=== PATIENT | male | born 1990 | race Caucasian/White ===

== ENCOUNTER 2020-03-06 00:55 | Outpatient (CLI) | payer OTHER, SELFPAY ==
[2020-03-06 16:32] LABS: SARS-CoV-2 RNA PCR Negative
== END 2020-03-06 00:56 | disposition home or self-care (01) ==
LOC: ANHCOVIDDT 00:55
PROVIDERS: Visit Provider Internal Medicine Gastroenterology
DX: Z01.812 Encounter for preprocedural laboratory examination (principal); Z20.828 Contact with and (suspected) exposure to other viral communicable diseases
CPT/HCPCS: 87635; C9803; U0003

== ENCOUNTER 2020-03-08 00:25 | Day surgery (SDC) | payer OTHER, SELFPAY ==
[2020-02-23 14:30] VITALS: BMI 28.3
[2020-03-08 06:31] VITALS: BP 129/80; PULSE 83; RESP 20; TEMP 36.6; O2SAT 100; BMI 28.1
[2020-03-08] MEDS: LACTATED RINGERS 1,000 ML 150 ML IV CONT (06:42)
--- NOTE | 2020-03-08 07:14 | P.PNAN_ITS ---
Anes - Initial Pre Proc Eval Procedure: Operation Date: 03/08/20 07:30 Proposed Procedures p Colonoscopy - Wilfrido Erazo MD Date/Time: 03/08/20 07:14 Surgeon: Wilfrido Erazo MD Pre Op Diagnosis: rectal bleeding, change in bowel habits Patient Data Age: 29 Gender: M Height: 6 ft 2 in Weight: 99.5 kg Last Vital Signs Temp 36.6 C 03/08/20 06:31 Pulse 83 03/08/20 06:31 Resp 20 03/08/20 06:31 BP 129/80 03/08/20 06:31 Pulse Ox 100 03/08/20 06:31 Allergies Allergy/AdvReac Type Severity Reaction Status Date / Time ibuprofen Allergy Severe Swelling Verified 03/08/20 06:29 tree nut Allergy Mild Hives Verified 03/08/20 06:29 azithromycin Allergy Unknown N/V Verified 03/08/20 06:29 levofloxacin Allergy Unknown HIVES, N/V Verified 03/08/20 06:29 Penicillins Allergy Unknown HIVES Verified 03/08/20 06:29 sulfamethoxazole Allergy Unknown N/V Verified 03/08/20 06:29 trimethoprim Allergy Unknown N/V Verified 03/08/20 06:29 Home Medications Medication Instructions Recorded Confirmed Type alprazolam 0.25 mg PO PRN PRN 02/23/20 02/23/20 History budesonide-formoterol [Symbicort] 2 puff INHALATION DAILY 02/23/20 03/08/20 History Patient hx anesthesia problems: none Family hx anesthesia problems: none [facility] Past Medical History Medical History Asthma Anes - Eval Final PreProcedure Day of Procedure 03/08/20 07:14 Patient weight: overweight Heart: regular rate and rhythm Lungs: clear to auscultation Airway: Mallampati scale class 1 Neurological: alert and oriented Last oral intake: >/= 8 hours ASA classification: II Emergent: no Anesthetic plan: proceed Anesthesia type and monitoring: general GIVS and standard monitoring Informed Consent: The patient's anesthetic plan and its attendant risks and benefits were discussed with the patient/family/POA. Questions were solicited and answers provided to the satisfaction of the patient/family/POA.
--- NOTE | 2020-03-08 07:54 | WPDGICN ---
Assessment and Plan Assessment and plan (1) Rectal pain, chronic: Code(s): K62.89 - Other specified diseases of anus and rectum; G89.29 - Other chronic pain Status: Acute Assessment and Plan: Patient has intermittent rectal peeing suspicious for rectal spasms. Alteration in bowel habits suggest possible irritable bowel syndrome rectal bleeding also noted plan is to evaluate with colonoscopy to exclude organic disease. Plan is for high-fiber diet antispasmodic agents such as Levsin will be implemented as well. Further recommendations will be given after endoscopy. (2) Rectal bleeding: Code(s): K62.5 - Hemorrhage of anus and rectum Status: Acute GI Consult Note Consult date/time: 03/08/20 07:54 HPI: Estevan Aguilar is a 29 year old male seen at the request of Dr Grant. Patient presents because of bright red blood per rectum she he has noticed rectal bleeding for several years. He also complains of irregular loose stools. Complains of intermittent rectal planning that is inside the rectum. Occurs briefly but very intense occurs at least 1 time a week. Pain is not related to bowel habits. He denies any fever. His appetite has remained stable lose weight has remained stable. Review of Systems Review of Systems: All systems reviewed & are unremarkable except as noted in HPI and below PMFSH Past Medical History Medical History Asthma Meds Home Medications and Allergies Home Medications Medication Instructions Recorded Confirmed Type alprazolam 0.25 mg PO PRN PRN 02/23/20 02/23/20 History budesonide-formoterol [Symbicort] 2 puff INHALATION DAILY 02/23/20 03/08/20 History Allergies Allergy/AdvReac Type Severity Reaction Status Date / Time ibuprofen Allergy Severe Swelling Verified 03/08/20 06:29 tree nut Allergy Mild Hives Verified 03/08/20 06:29 azithromycin Allergy Unknown N/V Verified 03/08/20 06:29 levofloxacin Allergy Unknown HIVES, N/V Verified 03/08/20 06:29 Penicillins Allergy Unknown HIVES Verified 03/08/20 06:29 sulfamethoxazole Allergy Unknown N/V Verified 03/08/20 06:29 trimethoprim Allergy Unknown N/V Verified 03/08/20 06:29 Vital Signs Vital Signs - 24 hr 03/08/20 06:31 Temperature 98 F Pulse Rate 83 Respiratory Rate 20 Blood Pressure 129/80 Pulse Oximetry 100 Exam Narrative: Exam Narrative: Physical exam reveals patient to be alert. Vital signs stable. HEENT exam unremarkable. Lungs are clear to auscultation and percussion. Heart is without murmur or extra sounds. Abdominal exam bowel sounds are present soft nontender with no organomegaly. Digital external rectal exam is normal.
[2020-03-08 07:57] VITALS: BP 99/56; PULSE 80; RESP 16; O2SAT 99
[2020-03-08 08:07] VITALS: BP 121/85; PULSE 71; RESP 18; O2SAT 99
[2020-03-08 08:17] VITALS: BP 135/84; PULSE 65; RESP 20; O2SAT 99
== END 2020-03-08 08:35 | disposition home or self-care (01) ==
PROVIDERS: Visit Provider Internal Medicine Gastroenterology
PROC: 0DJD8ZZ Inspection of Lower Intestinal Tract, Via Natural or Artificial Opening Endoscopic (ICD-10-PCS; CPT 45378; principal; 2020-03-08 07:30)
DX: K62.5 Hemorrhage of anus and rectum (principal); K64.8 Other hemorrhoids; J45.909 Unspecified asthma, uncomplicated
CPT/HCPCS: 45378; J2704; J7120